=== PATIENT | female | born 1980 | race Caucasian/White ===

== ENCOUNTER 2018-04-24 14:01 | Emergency (ER) | payer BC, MEDICAID ==
[~2018-04-24] VITALS: Ht 167.6 cm; Wt 90.0 kg
[2018-04-24 14:16] VITALS: BP 117/84
== END 2018-04-24 15:27 | disposition home or self-care (01) ==
LOC: ER 14:10
DX: S93.401A Sprain of unspecified ligament of right ankle, initial encounter (principal); W17.89XA Other fall from one level to another, initial encounter; Y93.89 Activity, other specified; Y92.89 Other specified places as the place of occurrence of the external cause; Y99.8 Other external cause status
CPT/HCPCS: 29515; 73610; 99284